=== PATIENT | male | born 1960 | race Caucasian/White ===

== ENCOUNTER 2016-11-16 19:12 | Emergency (ER) | payer OTHER ==
[~2016-11-16] VITALS: Ht 185.4 cm; Wt 107.5 kg
[2016-11-16 21:02] LABS: Basophils # (auto) 0.1 uL; Basophils % (auto) 0.8 % (0.0-2.0); Eosinophils # (auto) 0 uL; Eosinophils % (auto) 0.4 % (0.0-7.0); Hematocrit 45.5 % (41.0-53.0); Hemoglobin 15.5 g/dL (13.5-17.5); Lymphocytes # (auto) 2.3 uL; Lymphocytes % (auto) 31.5 % (10.0-50.0); Mean Corpuscular Hemoglobin 31.9 pg (28.0-32.0); Mean Corpuscular Volume 93.8 fL (80.0-100.0); Mean Platelet Volume 7.8 fL (7.4-10.4); Monocytes # (auto) 0.7 uL; Monocytes % (auto) 9.5 % (0.0-12.0); Neutrophils # (auto) 4.3 uL; Neutrophils % (auto) 57.8 % (37.0-80.0); Platelet Count (auto) 249 10^3/uL (140-450); White Blood Cell 7.4 10^3/uL (4.4-10.8)
[2016-11-16 21:22] LABS: Albumin 3.8 g/dL (3.4-5.0); Alkaline Phosphatase 94 U/L (45-117); Anion Gap 12 (5-15); Aspartate Aminotransferase 124 U/L (15-37); BUN/Creatinine Ratio 20.5; Bilirubin, Total 0.7 mg/dL (0.2-1.0); Blood Urea Nitrogen 18 mg/dL (7-18); Calcium 8.8 mg/dL (8.5-10.1); Carbon Dioxide 25 mmol/L (21-32); Chloride 103 mmol/L (98-107); GFR African American 115 mL/min; GFR Non-African American 95 mL/min; Glucose 107 mg/dL (74-106); Potassium 3.2 mmol/L (3.5-5.1); Sodium 140 mmol/L (136-145); Total Protein 7.9 g/dL (6.4-8.2)
[2016-11-17 00:52] LABS: Urine Bilirubin Negative (Negative); Urine Blood Negative /uL (Negative); Urine Color Yellow (Yellow); Urine Glucose Normal (Normal); Urine Mucus FEW (None Seen); Urine Nitrite Negative (Negative); Urine RBC 1 /hpf (0 - 3); Urine Squamous Epithelial Cell FEW /hpf (<5)
[2016-11-17 01:01] LABS: Urine Ketone 1+ (Negative)
[2016-11-17] MEDS ORDERED: POTASSIUM CHL 20 Meq TABLET PO ONE (01:45)
[2016-11-17 02:21] VITALS: BP 141/89
== END 2016-11-17 02:26 | disposition home or self-care (01) ==
LOC: ER 19:12
DX: F10.10 Alcohol abuse, uncomplicated (principal); E07.89 Other specified disorders of thyroid; I10 Essential (primary) hypertension
CPT/HCPCS: 36415; 71020; 80053; 80320; 81001; 82962; 83735; 84484; 85025; 93005